=== PATIENT | female | born 2000 | race Caucasian/White ===

== ENCOUNTER 2022-01-09 08:56 | Emergency (ER) | payer SELFPAY ==
[~2022-01-09] VITALS: Ht 149.8 cm; Wt 43.9 kg
--- NOTE | 2022-01-09 09:09 | ED GU-Female ---
General Chief Complaint: OB < 20 WEEKS Stated Complaint: VAGINAL BLEEDING (6W PREG) History of Present Illness Date Seen by Provider: Jan 09, 2022 Time Seen by Provider: 09:04 Initial Comments 21-year-old presents with vaginal bleeding. Patient's last menstrual period was November 17. This would make her 7 weeks 4 days. Patient reports that couple days ago she started having some mild spotting. That yesterday she started having some clots, increased bleeding and some cramping. Patient denies any urinary symptoms. Patient with no other systemic complaints. Patient does report she had a previous ultrasound showing a intrauterine . Allergies and Home Medications Patient Home Medication List Home Medication List Reviewed: Yes Review of Systems Review of Systems Constitutional: no symptoms reported EENTM: no symptoms reported Respiratory: no symptoms reported Cardiovascular: no symptoms reported Gastrointestinal: no symptoms reported Genitourinary: see HPI : Yes LMP: Nov 17, 2021 Musculoskeletal: no symptoms reported Skin: no symptoms reported Psychiatric/Neurological: No Symptoms Reported Endocrine: No Symptoms Reported Physical Exam Vital Signs Vital Signs - First Documented 01/09/22 09:14 Temp 36.7 Pulse 102 Resp 16 B/P (MAP) 143/82 (102) Pulse Ox 99 O2 Delivery Room Air Capillary Refill : Height, Weight, BMI Height: '" Weight: lbs. oz. kg; BMI Method: General Appearance: WD/WN, no apparent distress HEENT: PERRL/EOMI Neck: full range of motion, supple Cardiovascular: normal peripheral pulses, regular rate, rhythm Respiratory: lungs clear, normal breath sounds Gastrointestinal: non tender, soft Pelvic: other (Deferred) Extremities: normal range of motion Neurologic/Psychiatric: alert, normal mood/affect, oriented x 3 Skin: normal color, warm/dry Progress/Results/Core Measures Suspected Sepsis SIRS Temperature: Pulse: Respiratory Rate: Blood Pressure / Mean: Results/Orders Lab Results Laboratory Tests Test 01/09/22 09:04 01/09/22 09:49 Range/Units Urine Color YELLOW Urine Clarity CLEAR Urine pH 6.5 5-9 Urine Specific [place] <=1.005 1.016-1.022 Urine Protein NEGATIVE NEGATIVE Urine Glucose (UA) NEGATIVE NEGATIVE Urine Ketones NEGATIVE NEGATIVE Urine Nitrite NEGATIVE NEGATIVE Urine Bilirubin NEGATIVE NEGATIVE Urine Urobilinogen 0.2 < = 1.0 MG/DL Urine Leukocyte Esterase NEGATIVE NEGATIVE Urine RBC (Auto) 1+ H NEGATIVE Urine RBC 0-2 /HPF Urine WBC RARE /HPF Urine Squamous Epithelial Cells 0-2 /HPF Urine Crystals NONE /LPF Urine Bacteria NEGATIVE /HPF Urine Casts NONE /LPF Urine Mucus NEGATIVE /LPF Urine Culture Indicated NO Human Chorionic Gonadotropin, Quant [id number] H <5 MIU/ML My Orders Orders - HANNAH CONNELL DO Us Ob Transvaginal [id number] (01/09/22 09:13) Hcg,Quantitative (01/09/22 09:13) Ua Culture If Indicated (01/09/22 09:13) Vital Signs/I&O 01/09/22 01/09/22 09:14 09:55 Temp 36.7 36.7 Pulse 102 102 Resp 16 16 B/P (MAP) 143/82 (102) 143/82 Pulse Ox 99 99 O2 Delivery Room Air Room Air Capillary Refill : Progress Note : Progress Note Patient's ultrasound showed an incomplete miscarriage. We will check her hCG so that they can follow-up. Recommend she follow-up with her primary care provider and OB to ensure she does have a complete miscarriage with no complications. Patient stable and discharged home Diagnostic Imaging Diagonstic Imaging: Ultrasound Comments Date of Exam:01/09/22 US OB TRANSVAGINAL [id number] INDICATION: Vaginal bleeding. There is an intrauterine gestational sac containing a pole consistent with approximately 6 weeks to 2 days gestation. No cardiac activity is seen consistent with embryonic demise. The gestational sac is abnormally located in the lower uterine segment. There is a moderate amount of debris within the endometrium, likely representing blood products. The technologist did report seeing the gestational sac move inferiorly throughout the study. The adnexa are unremarkable. No adnexal mass or free fluid is seen. IMPRESSION: 6 week 2 day embryonic demise with findings consistent with an ongoing spontaneous . The gestational sac moved inferiorly into the lower uterine segment throughout the study. There is a moderate amount of debris and blood products within the endometrium as well. Reviewed: Reviewed/Discussed Departure Impression Primary Impression: Incomplete miscarriage Disposition: 01 HOME, SELF-CARE Condition: Stable Departure-Patient Inst. Referrals: NO,LOCAL PHYSICIAN (PCP/Family) Primary Care Physician Patient Instructions: Loss (Miscarriage) ED Add. Discharge Instructions: Please follow-up in a couple days with your primary care provider and OB. Please notify them of your ER visit today to help them determine the best follow-up time. Return to the ER with any concerns. All discharge instructions reviewed with patient and/or family. Voiced understanding. HANNAH CONNELL DO Jan 09, 2022 09:08
[2022-01-09 09:34] LABS: BILIRUBIN,URINE NEGATIVE (NEGATIVE); CLARITY,URINE CLEAR; COLOR,URINE YELLOW; GLUCOSE, URINE (UA) NEGATIVE (NEGATIVE); KETONES,URINE NEGATIVE (NEGATIVE); LEUKOCYTE ESTERASE ,URINE NEGATIVE (NEGATIVE); NITRITE,URINE NEGATIVE (NEGATIVE); PH,URINE 6.5 (5-9); PROTEIN,URINE NEGATIVE (NEGATIVE)
[2022-01-09 09:43] LABS: BACTERIA,URINE NEGATIVE /HPF; RBC,URINE 0-2 /HPF; SQUAMOUS EPITHELIAL CELL,UR 0-2 /HPF; WBC,URINE RARE /HPF
[2022-01-09 09:55] VITALS: BP 143/82
--- NOTE | 2022-01-09 10:45 | Diagnostic Imaging Report ---
INDICATION: Vaginal bleeding. There is an intrauterine gestational sac containing a pole consistent with approximately 6 weeks to 2 days gestation. No cardiac activity is seen consistent with embryonic demise. The gestational sac is abnormally located in the lower uterine segment. There is a moderate amount of debris within the endometrium, likely representing blood products. The technologist did report seeing the gestational sac move inferiorly throughout the study. The adnexa are unremarkable. No adnexal mass or free fluid is seen. IMPRESSION: 6 week 2 day embryonic demise with findings consistent with an ongoing spontaneous . The gestational sac moved inferiorly into the lower uterine segment throughout the study. There is a moderate amount of debris and blood products within the endometrium as well. Dictated by: Dictated on workstation # [id number]
== END 2022-01-09 09:55 | disposition home or self-care (01) ==
LOC: ER FS 08:58
DX: O03.4 Incomplete spontaneous abortion without complication (principal); Z28.310 Unvaccinated for COVID-19
CPT/HCPCS: 36415; 76817; 81000; 84702

== ENCOUNTER 2022-07-05 17:37 | Emergency (ER) | payer SELFPAY ==
[~2022-07-05] VITALS: Ht 149.8 cm; Wt 46.2 kg
--- NOTE | 2022-07-05 17:59 | ED GU-Female ---
General Chief Complaint: OB < 20 WEEKS Stated Complaint: 14 WK PREG - BLEEDING Nursing Triage Note: PT AMB TO [facility] 5 WITH CC OF POSSIBLE MISCARRIAGE. PT STATES AROUND 4PM TODAY SHE STARTED BLEEDING. PT HAS HX OF MISCARRIAGE IN DEC 2021. Source: patient Exam Limitations: no limitations History of Present Illness Date Seen by Provider: Jul 05, 2022 Time Seen by Provider: 17:55 Initial Comments Patient is a 21-year-old female who is 14 weeks who presents to the ED with vaginal bleeding. This started around 4 PM. She states she noted bright red blood when she went to the bathroom. She states she had to continue to wipe to stop the bleeding. She is currently wearing a pad. History of miscarriage back in last December. She reports some mild lower abdominal cramping. She is G2, P0. Denies fever, vomiting, diarrhea, chest pain, cough or shortness of breath. Currently on prenatals. She follows with Dr. Castro. She does not concern for sexual transmitted infection. Frequent urination throughout the . She denies of any known blood disorders Allergies and Home Medications Allergies Coded Allergies: No Known Drug Allergies (Unverified , 07/05/22) Patient Home Medication List Home Medication List Reviewed: Yes Review of Systems Review of Systems Constitutional: No chills, No diaphoresis, No malaise, No weakness EENTM: No hearing loss, No ear pain, No blurred vision, No double vision Respiratory: No cough, No dyspnea on exertion, No short of breath Cardiovascular: No chest pain, No edema Gastrointestinal: abdominal pain; No diarrhea, No nausea, No vomiting Genitourinary: denies burning, denies discharge, denies dysuria; frequency; denies pain Musculoskeletal: No back pain, No joint pain Skin: No change in color, No change in hair/nails All Other Systemes Reviewed Negative Unless Noted: Yes Past Brkminf-Hzhvxa-Wtazlq Hx Patient Social History Tobacco Use?: No Substance use?: No Alcohol Use?: No Immunizations Up To Date First/Initial COVID19 Vaccinat: Not currently vaccinated Second COVID19 Vaccination Luis: Not currently vaccinated Third COVID19 Vaccination Date: Not currently vaccinated Past Medical History Surgery/Hospitalization HX: Asthma Physical Exam Vital Signs Vital Signs - First Documented 07/05/22 17:43 Pulse 71 B/P (MAP) 104/73 (83) Pulse Ox 100 O2 Delivery Room Air Capillary Refill : Height, Weight, BMI Height: '" Weight: lbs. oz. kg; 20.00 BMI Method: General Appearance: WD/WN, no apparent distress HEENT: PERRL/EOMI, normal ENT inspection, TMs normal, pharynx normal Neck: non-tender, full range of motion, supple, normal inspection Cardiovascular: regular rate, rhythm, no edema, no gallop, no JVD Respiratory: chest non-tender, lungs clear, normal breath sounds, no respiratory distress, no accessory muscle use Gastrointestinal: normal bowel sounds, non tender, soft, no organomegaly Back: normal inspection, no CVA tenderness, no vertebral tenderness Extremities: normal range of motion, non-tender, normal inspection, no pedal edema Neurologic/Psychiatric: personal counselor II-XII nml as tested, no motor/sensory deficits, alert, normal mood/affect, oriented x 3 Skin: normal color, warm/dry Progress/Results/Core Measures Suspected Sepsis SIRS Temperature: Pulse: 71 Respiratory Rate: Laboratory Tests 07/05/22 17:55: White Blood Count 8.0 Blood Pressure 104 /73 Mean: 83 Laboratory Tests 07/05/22 17:55: Creatinine 0.69, Platelet Count 247, Total Bilirubin 0.4 Results/Orders Lab Results Laboratory Tests Test 07/05/22 17:55 07/05/22 18:50 Range/Units White Blood Count 8.0 4.3-11.0 10^3/uL Red Blood Count 3.77 L 3.80-5.11 10^6/uL Hemoglobin 12.1 11.5-16.0 g/dL Hematocrit 34 L 35-52 % Mean Corpuscular Volume 91 80-99 fL Mean Corpuscular Hemoglobin 32 25-34 pg Mean Corpuscular Hemoglobin Concent 35 32-36 g/dL Red Cell Distribution Width 13.4 10.0-14.5 % Platelet Count 247 130-400 10^3/uL Mean Platelet Volume 9.7 9.0-12.2 fL Immature Granulocyte % (Auto) 0 % Neutrophils (%) (Auto) 61 42-75 % Lymphocytes (%) (Auto) 26 12-44 % Monocytes (%) (Auto) 8 0-12 % Eosinophils (%) (Auto) 3 0-10 % Basophils (%) (Auto) 1 0-10 % Neutrophils # (Auto) 4.9 1.8-7.8 10^3/uL Lymphocytes # (Auto) 2.1 1.0-4.0 10^3/uL Monocytes # (Auto) 0.7 0.0-1.0 10^3/uL Eosinophils # (Auto) 0.3 0.0-0.3 10^3/uL Basophils # (Auto) 0.1 0.0-0.1 10^3/uL Immature Granulocyte # (Auto) 0.0 0.0-0.1 10^3/uL Sodium Level 137 135-145 MMOL/L Potassium Level 3.7 3.6-5.0 MMOL/L Chloride Level 107 98-107 MMOL/L Carbon Dioxide Level 19 L 21-32 MMOL/L Anion Gap 11 5-14 MMOL/L Blood Urea Nitrogen 9 7-18 MG/DL Creatinine 0.69 0.60-1.30 MG/DL Estimat Glomerular Filtration Rate 125 BUN/Creatinine Ratio 13 Glucose Level 82 70-105 MG/DL Calcium Level 9.0 8.5-10.1 MG/DL Corrected Calcium 9.2 8.5-10.1 MG/DL Total Bilirubin 0.4 0.1-1.0 MG/DL Aspartate Amino Transf (AST/SGOT) 16 5-34 U/L Alanine Aminotransferase (ALT/SGPT) 10 0-55 U/L Alkaline Phosphatase 48 40-136 U/L Total Protein 7.1 6.4-8.2 GM/DL Albumin 3.7 3.2-4.5 GM/DL Human Chorionic Gonadotropin, Quant [id number] H <5 MIU/ML Urine Color YELLOW Urine Clarity CLEAR Urine pH 6.5 5-9 Urine Specific [place] 1.010 L 1.016-1.022 Urine Protein NEGATIVE NEGATIVE Urine Glucose (UA) NEGATIVE NEGATIVE Urine Ketones 1+ H NEGATIVE Urine Nitrite NEGATIVE NEGATIVE Urine Bilirubin NEGATIVE NEGATIVE Urine Urobilinogen 0.2 < = 1.0 MG/DL Urine Leukocyte Esterase NEGATIVE NEGATIVE Urine RBC (Auto) 1+ H NEGATIVE Urine RBC RARE /HPF Urine WBC NONE /HPF Urine Squamous Epithelial Cells 0-2 /HPF Urine Crystals NONE /LPF Urine Bacteria NEGATIVE /HPF Urine Casts NONE /LPF Urine Mucus NEGATIVE /LPF Urine Culture Indicated NO My Orders Orders - JEFERSON SEQUEIRA Cbc With Automated Diff (07/05/22 17:53) Hcg,Quantitative (07/05/22 17:53) Comprehensive Metabolic Panel (07/05/22 17:53) Ua Culture If Indicated (07/05/22 17:53) RH (07/05/22 18:25) Us Ob>14 Wks Sngle W/Transvag (07/05/22 17:51) Vital Signs/I&O 07/05/22 07/05/22 17:43 20:08 Pulse 71 61 B/P (MAP) 104/73 (83) 99/56 Pulse Ox 100 100 O2 Delivery Room Air Room Air Capillary Refill : Blood Pressure Mean: 83 Departure Communication (PCP) Patient is 14 weeks . She noted some vaginal bleeding around 4 PM. She states she had to wipe several times due to excessive bleeding. Bleeding stopped. History of miscarriage carriage last December. Patient denies of any urinary symptoms, vaginal discharge or concern for sexual transmitted infection. Patient on arrival no acute distress. Very minimal suprapubic discomfort. She has no flank tenderness, right upper quadrant tenderness or right lower quadrant tenderness suggesting acute cholecystitis, appendicitis or nephrolithiasis.. Af ebrile. CBC, CMP, beta quant, Rh was ordered. Rh+. CBC grossly unremarkable. CMP grossly unremarkable. Beta quant 67,000. She believes she is about 14 weeks . She refused pelvic exam. Ultrasound transvaginal was ordered which showed a single live intrauterine measuring 14 weeks and 4 days old gestation. Placenta previa noted cardiac activity 143 bpm. She does not appear in distress. Refuse anything for pain. Currently on prenatals. She Follows up with Dr. Castro. Due to the placenta previa it is recommend to follow-up with SWING RIDE OPERATOR for further evaluation. Due to patient being in the second trimester no further intervention at this time. We will need to continue monitoring at this point. Patient was discussed with Dr. Dela Cruz who agreed with this plan of continue monitoring with her SWING RIDE OPERATOR. If any worsening bleeding he recommend to return back to ED. She does not require RhoGAM Impression Primary Impression: Threatened miscarriage Disposition: 01 HOME, SELF-CARE Condition: Stable Departure-Patient Inst. Decision time for Depature: 18:48 Referrals: ABDI CASTRO MD [facility] [place] NO,LOCAL PHYSICIAN (PCP) Primary Care Physician Patient Instructions: Bleeding in Early ED Add. Discharge Instructions: Recommend following up with your SWING RIDE OPERATOR for further evaluation. All discharge instructions reviewed with patient and/or family. Voiced understanding. JEFERSON SEQUEIRA Jul 05, 2022 17:59
[2022-07-05 18:03] LABS: BASOPHILS # (AUTO) 0.1 10^3/uL (0.0-0.1); BASOPHILS % (AUTO) 1 % (0-10); EOSINOPHILS # (AUTO) 0.3 10^3/uL (0.0-0.3); EOSINOPHILS % (AUTO) 3 % (0-10); HEMATOCRIT 34 % (35-52); HEMOGLOBIN 12.1 g/dL (11.5-16.0); LYMPHOCYTES # (AUTO) 2.1 10^3/uL (1.0-4.0); LYMPHOCYTES % (AUTO) 26 % (12-44); MEAN CORPUSCULAR HEMOGLOBIN 32 pg (25-34); MEAN CORPUSCULAR HGB CONC 35 g/dL (32-36); MEAN CORPUSCULAR VOLUME 91 fL (80-99); MEAN PLATELET VOLUME 9.7 fL (9.0-12.2); MONOCYTES # (AUTO) 0.7 10^3/uL (0.0-1.0); MONOCYTES % (AUTO) 8 % (0-12); NEUTROPHILS # (AUTO) 4.9 10^3/uL (1.8-7.8); NEUTROPHILS % (AUTO) 61 % (42-75); PLATELET COUNT 247 10^3/uL (130-400)
[2022-07-05 18:15] LABS: ALBUMIN 3.7 GM/DL (3.2-4.5); POTASSIUM 3.7 MMOL/L (3.6-5.0)
[2022-07-05 18:17] LABS: TOTAL PROTEIN 7.1 GM/DL (6.4-8.2)
[2022-07-05 18:19] LABS: BILIRUBIN,TOTAL 0.4 MG/DL (0.1-1.0)
[2022-07-05 18:21] LABS: CREATININE SERUM 0.69 MG/DL (0.60-1.30)
[2022-07-05 18:58] LABS: BILIRUBIN,URINE NEGATIVE (NEGATIVE); CLARITY,URINE CLEAR; COLOR,URINE YELLOW; GLUCOSE, URINE (UA) NEGATIVE (NEGATIVE); KETONES,URINE 1+ (NEGATIVE); LEUKOCYTE ESTERASE ,URINE NEGATIVE (NEGATIVE); NITRITE,URINE NEGATIVE (NEGATIVE); PH,URINE 6.5 (5-9); PROTEIN,URINE NEGATIVE (NEGATIVE)
--- NOTE | 2022-07-05 19:02 | Diagnostic Imaging Report ---
INDICATION: Vaginal bleeding. . TECHNIQUE: Multiple real-time grayscale images were obtained over the gravid uterus. COMPARISON: None. FINDINGS: Single live intrauterine is identified. heart rate is documented at 143 bpm. Ranlo-rump length measures 8.6 cm consistent with 14 week and 4 day-old gestation position is variable. Amniotic fluid is subjectively within normal limits. Placenta is posterior. Caudal tip of the placenta does extend over the internal cervical os consistent with at least partial previa. Cervix measures 4.2 cm in length and is closed. Maternal adnexa are grossly unremarkable. Maternal ovaries are not well visualized due to position. CLINICAL DATES: 14 weeks and 0 days with estimated date of delivery of 01/03/2023. IMPRESSION: 1. Single live intrauterine measuring consistent with 14 week and 4 day-old gestation. This results in an estimated date of delivery of 12/30/2022. This is within acceptable range of provided clinical dates. 2. Placenta previa. Follow-up is advised. Dictated by: Dictated on workstation # [id number]
[2022-07-05 19:12] LABS: BACTERIA,URINE NEGATIVE /HPF; RBC,URINE RARE /HPF; SQUAMOUS EPITHELIAL CELL,UR 0-2 /HPF
[2022-07-05 20:08] VITALS: BP 99/56
== END 2022-07-05 20:08 | disposition home or self-care (01) ==
LOC: EDUNIT# 17:37 → ER 17:38
DX: O20.0 Threatened abortion (principal); Z3A.14 14 weeks gestation of pregnancy
CPT/HCPCS: 36415; 76805; 76817; 80053; 81000; 84702; 85025; 86901